=== PATIENT | female | born 1960 | race Caucasian/White ===

== ENCOUNTER 2023-07-29 18:58 | Inpatient (IN) | payer BC, SELFPAY ==
[2023-07-29] VITALS (9 sets, daily range): BP systolic 104–146; BP diastolic 65–91; BMI 19.2; BMI 18.3
[2023-07-29 14:52] LABS: % Basophils 0.2 % (0-2); % Eosinophils 0.1 % (0-6); % Immature Granulocytes 0.7 % (0-0.5); % Lymphocytes 3.3 % (20.5-51.1); % Monocytes 3.6 % (1.7-9.3); % Neutrophils 92.1 % (42.2-75.2); Absolute Immature Granulocytes 0.1 10^3/uL (0-0.05); Absolute Lymphocytes 0.3 10^3/uL (1.2-3.4); Absolute Monocytes 0.3 10^3/uL (0.1-0.6); Hematocrit 28.6 % (37.0-47.0); Hemoglobin 9.8 g/dL (12.0-16.0); Mean Corp Hgb Conc. 34.3 g/dL (33.0-37.0); Mean Corpuscular Hgb 29.9 pg (27.0-31.0); Mean Corpuscular Volume 87.2 fL (81.0-99.0); Mean Platelet Volume 11.5 fL (7.4-10.4); Nucleated Red Blood Cells % 0 %; Platelet Count 332 10^3/uL (130-400); Red Blood Cell Count 3.28 10^6/uL (4.20-5.40); Red Cell Dist. Width 13.5 % (11.5-14.5); White Blood Cell Count 8.7 10^3/uL (4.8-10.8)
[2023-07-29 15:05] LABS: Urine Albumin Trace (Neg - Trace); Urine Bilirubin Negative (Negative); Urine Character Slightly Cloudy (Clear); Urine Color Yellow; Urine Glucose Negative (Negative); Urine Ketone Negative (Negative); Urine Leukocyte 2+ (Negative); Urine Nitrite Positive (Negative); Urine Occult Blood Negative (Negative); Urine Urobilinogen Negative (Neg - 1+)
--- NOTE | 2023-07-29 15:05 | EDRN ---
I noted that pt was clean -- no evidence of poor hygiene. states she had been getting out of bed to use the bathroom as needed, except today when she urinated on the floor in the bedroom and then stared at the wall for hours. He says she has
been in a ' near catatonic state' ..
[2023-07-29] MEDS: NSS 1000 IV (15:08)
[2023-07-29 15:39] LABS: TSH Reflex To Free T4 < 0.02 uIU/ml (0.47-4.68)
[2023-07-29 15:51] LABS: Urine Red Blood Cell 0-2 /HPF (0-2)
[2023-07-29 15:52] LABS: Urine Bacteria Few (Negative)
--- NOTE | 2023-07-29 16:00 | ED.GENMED ---
History of Present Illness
General
Chief Complaint: Change in Mental Status
Source: spouse
Exam Limitations: clinical condition
Time Seen by Provider: 07/29/23 14:09
Nursing documentation reviewed up to this point in time: agreed with
Travel History
Have you had any contact with someone who has COVID-19?: Unable to Answer
Do you have any symptoms of coronavirus? Fever > 100 degrees, chills, cough, shortness of breath, sore throat, loss of taste or smell, muscle aches, or headache?: Unable to Answer
History of Present Illness
History of Present Illness:
pt is a 62 y/o F with h/o HTN, HLD, s/p thyroidectomy secondary to cancer
here with who is primary historian
for change in mental status
pt had some adjustment to her psych meds for bipolar disorder back in may, taken off vralar and on zyprexa
her has noticed that she seems to be having very low energy and some flattened affect to the point where it has affected her living.
5 days ago she had a tele conference with her psychiatrist and he sent her for outpatien tlabs in case there were other causes for this.
her labs showed that she had an JOHN (baseline cr 1.7 up to 2.5) and todl to [place] in.
he says over 3 days she has had sinificantly worsening episodes - that she is 'catatonic' at times, wehr eshe stares at the wall for many hours and is less communicative
she was incontinent of urine this morning and just stood staring at the wall
Past History
Past History
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
ED Past Surgical History: Other (Thyroidectomy)
Social History
Tobacco: Non-smoker
Alcohol: Occasional
Personal:
Living: with family
Family History
Family History: Negative Diabetes, Hypertension, Early CAD, Asthma or Cancer
Review of Systems
Review of Systems
Allergies reviewed?: Yes
All Other Systems: Not applicable
Phy Exam
Physical Exam
Physical Exam:
GENERAL: opens eyes, iminimally communicative, follows some commands, seems to select what she will cooperate with
HEAD: NCAT sunken eyes
EYE: pupils equal and reactive, no nystagmus, no photophobia
NECK: Supple,full rom, nontender
ENT: o/p clr, mmm.
CARDIAC: Regular rate and rhythm . no edema
LUNGS: Clear breath sounds bilaterally, no acute respiratory distress, no wheezes/rales/rhonchi
ABDOMEN: Soft, without focal tenderness, no r/g, no cvat
NEUROLOGICAL:awake, staring off, minimally following commands, can move all extremities but seems globally weak, stuck tongue out oat me but otherwise wasn't following many commands
SKIN: Warm and dry, skin intact.
MUSCULOSKELETAL: No edema, well perfused.
PSYCH: mostly starting, not communicating;
Course
Orders/Labs/Results
Orders:
Orders
07/29/23 14:16
Complete Blood Count/With Diff Urgent
Free T4 Urgent
TSH Reflex To Free T4 Urgent
07/29/23 14:53
Electrocardiogram (*1) Urgent
Reason for Study: Fatigue / Weakness
CT Head W/o Iv Contrast Urgent
Comment:
Reason For Exam: ams
EKG- Treatment ONCE
Urinalysis Reflex To Culture Urgent
Date Specimen was Collected: 07/29/23
Time Specimen was Collected: 14:43
Urine Microscopic Reflex Cult Urgent
Urine Culture Urgent
BIPIN Source: U
Specimen Description:
Date Specimen was Collected: 07/29/23
Time Specimen was Collected: 14:43
0.9% Sodium Chloride 1000 ml [Nss] 1,000 ml IV BOLUS
07/29/23 Dinner
Regular
At Your Request: Limited Participation
Does patient need a safe tray?: No
07/29/23 17:23
Comprehensive Metabolic Panel Routine
07/29/23 17:27
CefTRIAXone [Rocephin] 1,000 mg IV NOW STA
07/29/23 18:27
Admit/Transfer Patient As Directed
Co-Sign Provider:
Level of Care: Inpatient admission
Assign to:: Medical/Surgical
Physician / Group: kenny
Diagnosis: uti, psychiatric
Reason for Hospitalization: uti, psychiatric
Expected length of stay greater than two midnights?: Yes
ELOS- Estimated Length of Stay in days: 2
I certify the patient meets the requirements for IP care: Yes
07/29/23 18:28
Code Status As Directed
Resuscitation Status: Full Code
07/29/23 21:28
Heparin 5,000 units SC Q12
omega 6-jbx-ybz-fish oil [Fish Oil] 1 cap PO BID
07/29/23 21:28
Activity As Directed
Activity Level: As Tolerated
Vital Signs As Directed
Frequency: Per unit guidelines
DX Deep Vein Thrombosis Video Routine
07/29/23 21:49
Acetaminophen [Tylenol] 1,000 mg PO DAILYPRN PRN
07/29/23 22:00
Atorvastatin [Lipitor] 20 mg PO HS
Olanzapine [Zyprexa] 15 mg PO DAILY@1999
Oxcarbazepine [Trileptal] 600 mg PO BID
07/30/23 07:00
Levothyroxine [Synthroid] 137 mcg PO DAILY AT 0700
07/30/23 07:26
Complete Blood Count/With Diff IN AM
Comprehensive Metabolic Panel IN AM
07/30/23 08:00
Cholecalciferol (Vitamin D3) [VITAMIN D3 (cholecalciferol)] 25 mcg PO DAILY
Losartan [Cozaar] 50 mg PO DAILY
Metoprolol Xl [Toprol Xl] 50 mg PO DAILY
07/30/23 18:00
CefTRIAXone [Rocephin] 1,000 mg IV Q24H
Abnormal Lab Results
07/29/23 07/29/23 07/29/23
14:16 14:53 17:23
RBC 3.28 L 10^6/uL
(4.20-5.40)
Hgb 9.8 L g/dL
(12.0-16.0)
Hct 28.6 L %
(37.0-47.0)
MPV 11.5 H fL
(7.4-10.4)
Abs Immat Gran (auto) 0.1 H 10^3/uL
(0-0.05)
Absolute Neuts (auto) 8.0 H 10^3/uL
(1.4-6.5)
Absolute Lymphs (auto) 0.3 L 10^3/uL
(1.2-3.4)
Immature Gran % 0.7 H %
(0-0.5)
Neutrophils % 92.1 H %
(42.2-75.2)
Lymphocytes % 3.3 L %
(20.5-51.1)
Chloride 111 H mmol/L
(98-107)
Carbon Dioxide 20 L mmol/L
(22-30)
BUN 48 H mg/dl
(7-17)
Creatinine 1.8 H mg/dL
(0.6-1.0)
Total Protein 5.6 L g/dl
(6.3-8.2)
Albumin 3.2 L g/dl
(3.5-5.0)
TSH (Reflex) < 0.02 L uIU/ml
(0.47-4.68)
Urine Nitrite (Reflex) Positive A
(Negative)
Leukocyte Esterase Rfl 2+ A
(Negative)
Urine WBC (Reflex) 11-15 A /HPF
(0-5)
Urine Bacteria (Reflex) Few A
(Negative)
07/29/23 14:16
07/29/23 17:23
Vital Signs
Initial and Last Documented VS:
Initial Vital Signs
Temp Pulse Resp BP Pulse Ox
97.8 F 76 16 104/65 97
07/29/23 14:02 07/29/23 14:02 07/29/23 14:02 07/29/23 14:02 07/29/23 14:02
Last Documented Vital Signs
Temp Pulse Resp BP Pulse Ox
98.5 F 75 18 124/81 98
07/31/23 08:51 07/31/23 08:53 07/31/23 08:51 07/31/23 08:53 07/31/23 14:10
MDM/Problems Addressed
Differential Diagnosis Includes:
ams, john, dehdyration, uti, stroke, psychosis, depression
MDM/Problems Addressed:
62 y/o F with h/o mental illness
here with dec mental status, staring into space, not really eat/drinking normally
has been ongoign since change to spych meds but worse in the past 3 days specfiically
urinated on herself today while standing up getting to the bathroom then stood for 3 horus staring at the wall
minimally followin gcommands; seems to be selective
appears mildly dry
pale
pt has been losing weight
heart/lungs clear, abd nontender
unable to really assess neuro exam but does move all extremities
left face looked a little asysmetric/droop but she can elevate her mouth
has had uti bacteremia before
her urine is nitrite pos, LE, wbc 11, few bacteria;
likely contributory to her AMS
feel that pt should probably warrant a psych consult
anticipate admission.
*Critical Care Note
Total Time (30-74mins, 75-104mins- exclusive of procedures): Not Applicable
ED Attending Note
-
Portions of this chart may have been created with voice recognition software.� Occasional wrong word or��sound alike� substitutions may have occurred due to the inherent limitations of voice recognition software.
Discharge Plan
Departure
Patient Disposition: Admit
Date of Disposition: 07/29/23
Time of Disposition: 17:27
Admit to: Med/Surg
Presentation/result/management discussed w/ accepting MD/DO: Hospitalist
Patient with high blood pressure during this ER visit?: No
Condition: Fair
Covid-19: Not Applicable
Discharge Problem:
UTI (urinary tract infection), Altered mental status, Dehydration
Interventions
Interventions:
*Risk Screen - Suicide Last Done: 07/29/23 23:15
*General Assessment Last Done: 07/29/23 14:00
*Neglect/Abuse Screening Last Done: 07/29/23 15:00
ED- Fall Risk Assessment Last Done: 07/29/23 14:03
*ED COVID-19 Vaccine History Last Done: 07/29/23 14:03
*Nursing Disposition Last Done: 07/29/23 21:32
ED- Pulmonary Assessment Last Done: 07/29/23 14:18
ED-Psychological Assessment Last Done: 07/29/23 15:03
ED- Neurological Assessment Last Done: 07/29/23 14:04
ED- Cardiac Assessment Last Done: 07/29/23 14:15
ED Swallowing Screen Last Done: 07/29/23 17:36
Discharge Date and Time
Discharge Date/Time: 07/29/23 21:32
[2023-07-29 16:07] LABS: Free T4 1.21 ng/dl (0.78-2.19)
[2023-07-29] MEDS: ROCEPHIN 1000 MG IV (17:32)
[2023-07-29 17:52] LABS: ALT (SGPT) 20 U/L (0-35); AST (SGOT) 19 U/L (14-36); Albumin 3.2 g/dl (3.5-5.0); Alkaline Phosphatase 96 U/L (38-126); Blood Urea Nitrogen 48 mg/dl (7-17); Calcium 8.6 mg/dl (8.4-10.2); Carbon Dioxide 20 mmol/L (22-30); Chloride 111 mmol/L (98-107); Estimated Creatinine Clearance 27 ml/min; Glucose 93 mg/dl (70-99); Potassium 4.1 mmol/L (3.5-5.1); Sodium 137 mmol/L (135-145); Total Bilirubin 0.4 mg/dl (0.2-1.3); Total Protein 5.6 g/dl (6.3-8.2); eGFR 31.27
--- NOTE | 2023-07-29 18:31 | HPS.HSE ---
Family Physician
-
Family Physician: Ladi Mcgrath DO
Chief Complaint
-
altered mental status
History of Present Illness
62-year-old female past medical history of bipolar disorder, hypertension, hyperlipidemia, thyroid cancer status post thyroidectomy, chronic kidney disease presenting for change in mental status. Patient was hospitalized at [facility] after
Thanks for charles and at that time was taken off of Vraylar and started on Zyprexa in early May. Zyprexa has been successful in calming the charles but patient has been showing less emotion, having flattened affect particularly over the
past week. She has been eating significantly less.
5 days ago she had a teleconference with her psychiatrist and he checked outpatient labs to evaluate for medical causes. Labs show that she had increase of creatinine up to 2.5 and was told to bring patient in to the hospital. Over the
past 3 days she has been catatonic at times staring at the wall for many hours and is less communicative was incontinent of urine this morning while staring at the wall. She was complaining of some lower abdominal pain. No nausea or vomiting. No
diarrhea or constipation. No fevers or chills.
No suicidal ideation.
No history of absent seizures.
No alcohol or any drugs.
Medical History
Past Medical History
Past Medical History: Reports Other ( bipolar disorder, hypertension, hyperlipidemia, thyroid cancer status post thyroidectomy, chronic kidney disease)
Past Surgical History: Reports None
Social History
Tobacco: Non-smoker
Alcohol: None
Drug: None
Family History
Family History: Not pertinent
Allergies / Home Medications
Allergies reflects when Allergies were last updated in [facility].
Home Medications with original date entered in [facility]
Allergy/Medication List:
Allergies
Allergy/AdvReac Type Severity Reaction Status Date / Time
Penicillins Allergy Hives Verified 05/16/23 15:36
Home Medications
cholecalciferol (vitamin D3) 25 mcg (1,000 unit) capsule (Vitamin D3) 25 mcg PO DAILY 05/16/23
losartan 50 mg tablet 50 mg PO DAILY 05/16/23
acetaminophen 650 mg tablet,extended release 1,300 mg PO DAILYPRN PRN mild pain 07/29/23
levothyroxine 137 mcg tablet 137 mcg PO DAILY 07/29/23
metoprolol succinate 50 mg tablet,extended release 24 hr 50 mg PO DAILY 07/29/23
olanzapine 15 mg tablet 15 mg PO DAILY@199907/29/23
omega 0-rdb-rwp-fish oil 1,000 mg (120 mg-180 mg) capsule (Fish Oil) 1 cap PO BID 07/29/23
oxcarbazepine 300 mg tablet 600 mg PO BID 07/29/23
simvastatin 40 mg tablet 40 mg PO HS 07/29/23
Review of Systems
-
History Source: Patient
A 12 point ROS was completed and negative except as noted: Yes
Constitutional: Reports No Symptoms
EENT: Reports No Symptoms
Respiratory: Reports No Symptoms
Cardiac: Reports No Symptoms
Abdomen/GI: Reports No Symptoms
: Reports See HPI
Musculoskeletal: Reports No Symptoms
Skin: Reports No Symptoms
Neurological: Reports No Symptoms
Endocrine: Reports No Symptoms
Hematologic/Lymphatic: Reports No Symptoms
Psych: Reports See HPI
Physical Exam
Vital Signs
Vital Signs
Temp Pulse Resp BP Pulse Ox
97.8 F 72 17 118/77 97
07/29/23 14:02 07/29/23 17:00 07/29/23 17:00 07/29/23 17:00 07/29/23 14:02
Physical Exam
General: Well Developed, Well Nourished and No Apparent Distress
HEENT: NormoCephalic, Moist mucous membranes and Atraumatic
Respiratory: Clear
Cardiac: S1/S2 and Regular Rhythm; No Murmur or Rub
GI: Soft, Non Tender, Non Distended and Normal Bowel Sounds; No Organomegaly
Rectal: Deferred by Provider
Musculoskeletal: No Clubbing, No Cyanosis and No Edema
Skin: No Rash
Neuro: Nonfocal/grossly intact
Laboratory Results
-
07/29/23 14:16
07/29/23 17:23
Laboratory Results
Total Bilirubin 0.4 mg/dl (0.2-1.3) 07/29/23 17:23
AST 19 U/L (14-36) 07/29/23 17:23
ALT 20 U/L (0-35) 07/29/23 17:23
Alkaline Phosphatase 96 U/L (38-126) 07/29/23 17:23
Data Reviewed
-
Lab Data: Labs Reviewed by me
Old Records: Reviewed
Impression/Plan
-
IMPRESSION:
PLAN:
# Altered mental status multifactorial secondary to UTI, psychiatric medication changes
-See individually below
# Urinary tract infection
-UA shows +2 leukocyte esterase, positive nitrates, 11-15 WBC
-Check urine culture
-Ceftriaxone
#Catatonic/staring episodes
# History of bipolar disorder
-Likely related to change in psychiatric medications if no improvement with treatment of UTI
-Absence seizures unlikely
-Continue olanzapine, oxcarbazepine
-Psychiatry consulted
# Chronic kidney disease
-Renal function at 1.8 which is at her baseline
Thyroid cancer status post thyroidectomy
-Continue levothyroxine
Essential hypertension
-Continue losartan, metoprolol
Hyperlipidemia
-Continue statin
Full code
DVT prophylaxis- heparin
Regular diet
[2023-07-29] MEDS: LIPITOR 20 MG PO (22:53)
[2023-07-29] MEDS: TRILEPTAL 600 MG PO (22:53)
[2023-07-29] MEDS: ZYPREXA 15 MG PO (22:53)
[2023-07-29] MEDS: HEPARIN SC ×2 (22:54→22:58)
[2023-07-30] MEDS: SYNTHROID 137 MCG PO (06:11)
[2023-07-30 08:02] LABS: % Basophils 0.3 % (0-2); % Eosinophils 1.2 % (0-6); % Immature Granulocytes 0.4 % (0-0.5); % Lymphocytes 7.7 % (20.5-51.1); % Monocytes 5.5 % (1.7-9.3); % Neutrophils 84.9 % (42.2-75.2); Absolute Eosinophils 0.1 10^3/uL (0-0.7); Absolute Lymphocytes 0.5 10^3/uL (1.2-3.4); Absolute Monocytes 0.4 10^3/uL (0.1-0.6); Absolute Neutrophils 5.7 10^3/uL (1.4-6.5); Hematocrit 27.2 % (37.0-47.0); Hemoglobin 9.2 g/dL (12.0-16.0); Mean Corp Hgb Conc. 33.8 g/dL (33.0-37.0); Mean Corpuscular Hgb 30.1 pg (27.0-31.0); Mean Corpuscular Volume 88.9 fL (81.0-99.0); Mean Platelet Volume 10.6 fL (7.4-10.4); Nucleated Red Blood Cells % 0 %; Platelet Count 333 10^3/uL (130-400); Red Blood Cell Count 3.06 10^6/uL (4.20-5.40); Red Cell Dist. Width 13.3 % (11.5-14.5); White Blood Cell Count 6.8 10^3/uL (4.8-10.8)
[2023-07-30 08:34] VITALS: BP 112/73
[2023-07-30] MEDS: COZAAR 50 MG PO (08:52)
[2023-07-30] MEDS: TRILEPTAL 600 MG PO (08:52)
[2023-07-30] MEDS: TOPROL XL 50 MG PO (08:53)
[2023-07-30] MEDS: HEPARIN SC ×2 (08:53→21:38)
[2023-07-30] MEDS: VITAMIN D3 (cholecalciferol) 25 MCG PO (08:53)
[2023-07-30 09:01] LABS: ALT (SGPT) 18 U/L (0-35); AST (SGOT) 16 U/L (14-36); Albumin 2.8 g/dl (3.5-5.0); Alkaline Phosphatase 85 U/L (38-126); Blood Urea Nitrogen 45 mg/dl (7-17); Carbon Dioxide 18 mmol/L (22-30); Chloride 112 mmol/L (98-107); Estimated Creatinine Clearance 24 ml/min; Glucose 79 mg/dl (70-99); Potassium 4.2 mmol/L (3.5-5.1); Sodium 142 mmol/L (135-145); Total Bilirubin 0.4 mg/dl (0.2-1.3); Total Protein 5.2 g/dl (6.3-8.2); eGFR 27.55
--- NOTE | 2023-07-30 12:39 | W.PN.HOSP.TC ---
Today's Communication/Plan
-
see A/P
Assessment / Plan
Assessment / Plan
62-year-old female past medical history of bipolar disorder, hypertension, hyperlipidemia, thyroid cancer status post thyroidectomy, chronic kidney disease presented for change in mental status.�Patient was hospitalized at [facility] after
Thanksgiving for charles and at that time was taken off of Vraylar and started on Zyprexa in early May.� Zyprexa has been successful in calming the charles but patient has been showing less emotion, having flattened affect particularly over the
past week.� She has been eating significantly less.
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
past 3 days she has been catatonic at times, staring at the wall for many hours and is less communicative.
She was incontinent of urine while staring at the wall.� She was complaining of some lower abdominal pain.�
No suicidal ideation. No history of absent seizures. No alcohol or any drugs.
A/P:
# Altered mental status multifactorial secondary to UTI, psychiatric medication changes
See individually below
# Urinary tract infection with E coli
Follow full urine Cx result
Cont Ceftriaxone
# Catatonic/staring episodes
# History of bipolar disorder
Likely related to change in psychiatric medications if no improvement with treatment of UTI
Absence seizures unlikely
Continue olanzapine, oxcarbazepine
Psychiatry consulted
# Chronic kidney disease stage 4
Renal function at 1.8 which is at her baseline
# Thyroid cancer status post thyroidectomy
Continue levothyroxine
# Essential hypertension
Continue losartan, metoprolol
# Hyperlipidemia
Continue statin
Full code
DVT prophylaxis- heparin
Regular diet
Anticipated Discharge: 24 - 48 hours
Subjective/Interval History
-
Date of Service: July 30, 2023
Objective Data
-
Labs:
Laboratory Results
07/30/23
07:26
WBC 6.8
Hgb 9.2 L
Hct 27.2 L
Plt Count 333
Sodium 142
Potassium 4.2
Chloride 112 H
Carbon Dioxide 18 L
BUN 45 H
Creatinine 2.0 H
Glucose 79
Calcium 9.0
Total Bilirubin 0.4
AST 16
ALT 18
Alkaline Phosphatase 85
Vital Signs:
Vital Signs
Temp Pulse Resp BP Pulse Ox
36.8 C 78 18 112/73 96
07/30/23 08:34 07/30/23 08:52 07/30/23 08:34 07/30/23 08:52 07/30/23 08:34
I&O
07/29/23 07/30/23 07/31/23
06:59 06:59 06:59
Intake Total 240 / 240
Output Total 500 / 500
Balance -260 / -260
Review of Systems
-
All other systems: Reviewed and negative
Physical Exam
-
General: Well Developed, Well Nourished, No Apparent Distress and Comfortable; Negative Respiratory Distress
HEENT: Normocephalic, Atraumatic, Nose Appears Normal and Ears Appear Normal; Negative Oxygen
Respiratory: Clear to Auscultation and Non Labored Respirations; Negative Accessory Resp Muscle Use
Cardiac: Regular Rhythm and S1/S2
GI: Soft, Nontender, Nondistended and Normal Bowel Sounds
Skin: Warm and Dry
Neuro: Awake and Alert
Psych: Calm and Other (flat affect)
Data Reviewed
-
Labs: Labs Reviewed by me
--- NOTE | 2023-07-30 13:13 | CON.MD ---
Consultation - Medical
-
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 she was last seen in april when she was 302 committed as she had become psychotic. please see my detailed note from that time. she had been on a number of medications
over the years for control of bipolar d/o . lithium caused renal issues and was stopped (she sees dr johnston) and depakote bc tcp. she was able to tell me these facts. she wound up in psych hosp in the fall and they dc'ed vraylar and put her on
zyprexa and trileptal which is ordered. she is here at this point as noted change in mental status and she was brought to er. she was found to have uti which is currently being rx. patient is described as almost 'catatonic' in the chart
but i did not find her so nor did nursing. she was appropriately interactive if not a bit subdued when her nurse and i initially talked to her. she had already ordered her lunch. she was oriented fully and knew the president, the holidays which just
passed. she did say she felt very tired and appeared thus. she is not sleeping well. appetite is so so. i could not elicit any overt psychosis. she denied suicidality. she enjoys her black lab and taking walks w him
past [facility] again see my prior psych eval sees dr stover for psych meds. most recent hosp in the fall of 2022
medical htn ckd see above thyroid ca w removal an subsequent hypothryoid hld qtc 483 abn ecg diverticulitis anemia 9.2 cr 2 bun 45 cat brain no acute changes
fh sh see prior evaluation
substance abuse denied
mse tired frail appearing woman who appears older than age. coopertive fully oriented knows president and recent holidays. speech soft and slowed thought process goal oriented no psychosis affect is constricted mood tired no si aver intelligence
insight judgment fair
dx bipolar unspecified
plan would cut back the zyprexa for now to 10 mg as she really appears sedated. it could be the uti but could also be med effect. trileptal is at what is usually max dose would cut it back somewhat and monitor. psych will follow.
[2023-07-30 16:28] VITALS: BP 99/59
--- NOTE | 2023-07-30 17:29 | CM ---
CM following re: d/c planning
Chart reviewed
CM met with the patient at bedside; IA completed
Pt reports she and her spouse reside in a [place] with 2 or 3 PRASHANTH
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
Pt has a significant psych hx and had been 302'd in Apr per psych documentation
Pt chong no previous SNF/VN hx and the only DME owned is a spc
Pt has prescription coverage and rx's are filled at [facility] on [address]
Pt PCP-Deanna Campos
Pt has skilled PT/OT needs and psych will continue to follow while hospitalized and adjust medications accordingly
No additional d/c needs noted; CM will follow up with patient to see if she receives any outpatient tx for psych hx
PLAN; d/c home no needs anticipated
[2023-07-30 17:54] VITALS: BMI 18.3
[2023-07-30] MEDS: STERILE WATER FOR INJECTION IV (18:06)
[2023-07-30] MEDS: ROCEPHIN IV (18:06)
[2023-07-30] MEDS: LIPITOR PO ×2 (21:40→21:58)
[2023-07-30 21:45] VITALS: BP 119/74
[2023-07-31] MEDS: SYNTHROID PO (06:25)
[2023-07-31 07:00] VITALS: BP 136/85
[2023-07-31 08:51] VITALS: BP 124/81
[2023-07-31] MEDS: TOPROL XL 50 MG PO (08:53)
[2023-07-31] MEDS: VITAMIN D3 (cholecalciferol) 25 MCG PO (08:55)
[2023-07-31] MEDS: COZAAR 50 MG PO (08:55)
[2023-07-31] MEDS: TRILEPTAL 300 MG PO (08:55)
[2023-07-31] MEDS: SYNTHROID 137 MCG PO (08:55)
[2023-07-31] MEDS: HEPARIN SC ×2 (08:58→22:07)
--- NOTE | 2023-07-31 09:44 | W.PN.HOSP.TC ---
Addendum entered and electronically signed by Mariaa Tucker MD 07/31/23 14:56:
# Toxic metabolic encephalopathy, multifactorial secondary to UTI and psychiatric medication changes
Original Note:
Today's Communication/Plan
-
see A/P
Assessment / Plan
Assessment / Plan
62-year-old female past medical history of bipolar disorder, hypertension, hyperlipidemia, thyroid cancer status post thyroidectomy, chronic kidney disease presented for change in mental status.�Patient was hospitalized at [facility] after
Thanksgiving for charles and at that time was taken off of Vraylar and started on Zyprexa in early May.� Zyprexa has been successful in calming the charles but patient has been showing less emotion, having flattened affect particularly over the
past week.� She has been eating significantly less.
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
past 3 days she has been catatonic at times, staring at the wall for many hours and is less communicative.
She was incontinent of urine while staring at the wall.� She was complaining of some lower abdominal pain.�
No suicidal ideation. No history of absent seizures. No alcohol or any drugs.
A/P:
# Altered mental status multifactorial secondary to UTI, psychiatric medication changes
See individually below
# Urinary tract infection with E coli
Cont Ceftriaxone
# Catatonic/staring episodes
# History of bipolar disorder
Likely related to change in psychiatric medications
Absence seizures unlikely
Continue olanzapine, oxcarbazepine
Psychiatry on board, cut back zyprexa and cut back trileptal
# Chronic kidney disease stage 4
Renal function at 1.8 which is at her baseline
# Thyroid cancer status post thyroidectomy
Continue levothyroxine
# Essential hypertension
Continue losartan, metoprolol
# Hyperlipidemia
Continue statin
Full code
DVT prophylaxis- heparin
Regular diet
Anticipated Discharge: 24 - 48 hours
Subjective/Interval History
-
Date of Service: July 31, 2023
Objective Data
-
Vital Signs:
Vital Signs
Temp Pulse Resp BP Pulse Ox
36.9 C 75 18 124/81 98
07/31/23 08:51 07/31/23 08:53 07/31/23 08:51 07/31/23 08:53 07/31/23 08:51
I&O
07/30/23 07/31/23 08/01/23
06:59 06:59 06:59
Intake Total 240 / 240 480 / 480
Output Total 500 / 500
Balance -260 / -260 480 / 480
Review of Systems
-
All other systems: Reviewed and negative
Physical Exam
-
General: Well Developed, Well Nourished, No Apparent Distress and Comfortable; Negative Respiratory Distress
HEENT: Normocephalic, Atraumatic, Nose Appears Normal and Ears Appear Normal; Negative Oxygen
Respiratory: Clear to Auscultation and Non Labored Respirations; Negative Accessory Resp Muscle Use
Cardiac: Regular Rhythm and S1/S2
GI: Soft, Nontender, Nondistended and Normal Bowel Sounds
Skin: Warm and Dry
Neuro: Awake and Alert
Psych: Calm and Other (flat affect)
Data Reviewed
-
Labs: Labs Reviewed by me
--- NOTE | 2023-07-31 14:45 | PN.CDI ---
CDI
- -
CDI:
Physician Documentation Request
Admit Date: 07/29/23 18:58
Dear Doctor Garrett,
Please review the following and provide your response in the progress notes.
Clinical Indicators:
PN, 2
# Altered mental status multifactorial secondary to UTI, psychiatric medication changes
# Urinary tract infection with E coli
# Catatonic/staring episodes
# History of bipolar disorder
#...Likely related to change in psychiatric medications
#...Absence seizures unlikely
#...Continue olanzapine, oxcarbazepine
#Psychiatry on board, cut back zyprexa and cut back trileptal
Based on the above, and your clinical assessment, please clarify in the Progress Notes and Discharge Summary the most likely etiology of the confusion/altered mental status.
Toxic metabolic encephalopathy, multifactorial secondary to UTI and psychiatric medication changes
Altered mental status only
Other
Use of terms such as suspected, likely, concern for, or probable (associated with a specific diagnosis that is being evaluated, monitored, or treated as if it exists) are acceptable and can be coded in the inpatient setting, when documented at the
time of discharge.
Thank you,
Crista Christie RN BSN CCDS
CDI Specialist
please contact via tiger text
Please use your independent medical judgment in providing your response.
[2023-07-31 15:00] VITALS: BP 121/71
--- NOTE | 2023-07-31 15:16 | W.PN.UPDATE ---
Update Note
Progress Note Update
patient seen chart reviewed. at bedside. spoke with nursing. patient seemed more alert today. she is still rather withdrawn. we discussed the changes i had made in meds. states that there had been plans to decrease her zyprexa in
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 also does not feel trileptal has been at all helpful for mrs taylor and is okay w decrease. patient has been reluctant to take antibiotic for uti. and i discussed w her. encouraged her to
take it and if there are ill effects to let us know so this can be addressed. will follow
[2023-07-31] MEDS: ROCEPHIN 1000 MG IV (17:22)
[2023-07-31] MEDS: STERILE WATER FOR INJECTION 10 ML IV (17:22)
[2023-07-31] MEDS: LIPITOR PO (22:08)
[2023-07-31 23:37] VITALS: BP 136/86
[2023-08-01 07:57] LABS: Hematocrit 29.5 % (37.0-47.0); Hemoglobin 9.7 g/dL (12.0-16.0); Mean Corp Hgb Conc. 32.9 g/dL (33.0-37.0); Mean Corpuscular Hgb 29.5 pg (27.0-31.0); Mean Corpuscular Volume 89.7 fL (81.0-99.0); Mean Platelet Volume 10.4 fL (7.4-10.4); Platelet Count 389 10^3/uL (130-400); Red Blood Cell Count 3.29 10^6/uL (4.20-5.40); Red Cell Dist. Width 13.6 % (11.5-14.5); White Blood Cell Count 7.9 10^3/uL (4.8-10.8)
[2023-08-01 08:13] VITALS: BP 133/81
[2023-08-01 08:17] LABS: Blood Urea Nitrogen 45 mg/dl (7-17); Calcium 9.4 mg/dl (8.4-10.2); Carbon Dioxide 19 mmol/L (22-30); Chloride 113 mmol/L (98-107); Estimated Creatinine Clearance 23 ml/min; Glucose 109 mg/dl (70-99); Potassium 4.1 mmol/L (3.5-5.1); Sodium 147 mmol/L (135-145); eGFR 25.99
[2023-08-01] MEDS: HEPARIN SC ×2 (08:55→21:27)
[2023-08-01] MEDS: TOPROL XL 50 MG PO (09:04)
[2023-08-01] MEDS: VITAMIN D3 (cholecalciferol) 25 MCG PO (09:05)
[2023-08-01] MEDS: COZAAR 50 MG PO (09:05)
[2023-08-01] MEDS: SYNTHROID 137 MCG PO (09:06)
[2023-08-01] MEDS: TRILEPTAL 300 MG PO (09:06)
--- NOTE | 2023-08-01 09:28 | W.PN.HOSP.TC ---
Addendum entered and electronically signed by Venancio Michaels MD 08/01/23 15:05:
Correction, hypernatremia
Original Note:
Today's Communication/Plan
-
see bold
Assessment / Plan
Assessment / Plan
62-year-old female past medical history of bipolar disorder, hypertension, hyperlipidemia, thyroid cancer status post thyroidectomy, chronic kidney disease presented for change in mental status.�Patient was hospitalized at [facility] after
Thanksgi for charles and at that time was taken off of Vraylar and started on Zyprexa in early May.� Zyprexa has been successful in calming the charles but patient has been showing less emotion, having flattened affect particularly over the
past week.� She has been eating significantly less.
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
past 3 days she has been catatonic at times, staring at the wall for many hours and is less communicative.
She was incontinent of urine while staring at the wall.� She was complaining of some lower abdominal pain.�
No suicidal ideation. No history of absent seizures. No alcohol or any drugs.
Gen: NAD, Awake and alert
Eyes: EOMI, PERRLA, no scleral icterus.
Neck: supple.
CV: RRR, +S1/S2, no m/r/g.
Resp: CTAB, no rales, wheezes, or rhonchi.
Abd: +BS, soft, NT, ND
Skin: No rashes.
Neuro: CN 2-12 intact, non-focal.
Psych: flat affect.
07/29/23 14:53 Urine Urine Culture - Final
Escherichia coli
Acute toxic metabolic encephalopathy:
-Multifactorial and secondary to UTI and well as psychiatric medication changes
-see below
Urinary tract infection:
-UCx with E coli
-cont Rocephin
Bipolar d/o:
-with h/o catatonic/staring episodes
-likely related to change in psychiatric medications
-Absence seizures unlikely
-psych following
-olanzapine and oxcarbazepine doses decreased
Hyponatremia and metabolic, anion gap, acidosis:
-start D5W
-trend Na, HCO3-
Other problems:
CKD4
Thyroid cancer s/p thyroidectomy: continue levothyroxine
Essential hypertension: cont ARB/BB
Hyperlipidemia: cont statin
FULL/heparin
Anticipated Discharge: 24 - 48 hours
Subjective/Interval History
-
Date of Service: August 01, 2023
No new complaints. Denies CP/SOB.
Objective Data
-
Labs:
Laboratory Results
08/01/23
07:22
WBC 7.9
Hgb 9.7 L
Hct 29.5 L
Plt Count 389
Sodium 147 H
Potassium 4.1
Chloride 113 H
Carbon Dioxide 19 L
BUN 45 H
Creatinine 2.1 H
Glucose 109 H
Calcium 9.4
Vital Signs:
Vital Signs
Temp Pulse Resp BP Pulse Ox
97.4 F 84 18 133/81 97
08/01/23 08:13 08/01/23 09:04 08/01/23 08:13 08/01/23 09:04 08/01/23 08:13
I&O
07/31/23 08/01/23 08/02/23
06:59 06:59 06:59
Intake Total 480 / 480
Balance 480 / 480
[2023-08-01] MEDS: D5W 1000 IV ×2 (11:01→21:19)
--- NOTE | 2023-08-01 13:43 | W.PN.UPDATE ---
Update Note
Progress Note Update
patient seen chart reviewed. at bedside . spoke to nursing. patient apparently did not take meds last night. today she has compliant. she appeared brighter today. she was eating better. much more responsive to talking w this machine sign writer and
. overall she still has rather constricted affect but feels she is improving each day. would continue w current meds as they are for now will follow
--- NOTE | 2023-08-01 16:09 | CM ---
Cm following re: d/c planning
Chart reviewed
Pt discharge anticipated within the next 24-48 hours
Pt seen by psych and she's adjusted some of the patient's medications
No skilled needs noted; however patient will continue to be seen at [facility] for continued treatment
CM will continue to monitor patient progress and assist with any d/c planning as applicable
PLAN; d/c home no needs anticipated
[2023-08-01 16:12] VITALS: BP 110/69
[2023-08-01] MEDS: ROCEPHIN 1000 MG IV (17:53)
[2023-08-01] MEDS: STERILE WATER FOR INJECTION 10 ML IV (17:54)
[2023-08-01] MEDS: STERILE WATER FOR INJECTION 2.10000000000000009 ML IM (20:18)
[2023-08-01] MEDS: ZYPREXA 5 MG IM (20:23)
[2023-08-01] MEDS: LIPITOR PO (22:11)
[2023-08-01 22:33] VITALS: BP 128/76
--- NOTE | 2023-08-01 22:56 | TRANSFER ---
Pt received from , sitting up in bed repeatedly stating the same phrases over and over. Patient will not answer any questions, just keeps repeating 'this room isn't real'. Medsitter in place.
[2023-08-02] MEDS: SYNTHROID PO (06:11)
[2023-08-02] MEDS: D5W 1000 IV ×2 (06:12→16:15)
[2023-08-02 07:20] VITALS: BP 121/90
[2023-08-02] MEDS: VITAMIN D3 (cholecalciferol) PO ×2 (08:36→08:43)
[2023-08-02] MEDS: COZAAR PO ×2 (08:36→08:43)
[2023-08-02] MEDS: TRILEPTAL PO ×2 (08:36→08:43)
[2023-08-02] MEDS: HEPARIN SC ×3 (08:36→20:57)
[2023-08-02] MEDS: TOPROL XL PO ×2 (08:36→08:43)
--- NOTE | 2023-08-02 09:26 | PTCARENOTE ---
Addendum entered by Winston Ch RN 08/02/23 13:25:
Pt's at bedside, pt agreeable to taking morning medications with him present. Administration documented per MAR.
Original Note:
Pt refusing all morning medications. This RN with several attempts to educate patient on the use and importance of each medication, but patient detached and not participating in teaching. made aware.
[2023-08-02 09:35] LABS: Blood Urea Nitrogen 36 mg/dl (7-17); Calcium 8.2 mg/dl (8.4-10.2); Carbon Dioxide 23 mmol/L (22-30); Chloride 107 mmol/L (98-107); Estimated Creatinine Clearance 28 ml/min; Glucose 125 mg/dl (70-99); Potassium 3.9 mmol/L (3.5-5.1); Sodium 136 mmol/L (135-145); eGFR 33.49
[2023-08-02] MEDS: TRILEPTAL 300 MG PO (12:46)
[2023-08-02] MEDS: COZAAR 50 MG PO (12:46)
[2023-08-02] MEDS: TOPROL XL 50 MG PO (12:46)
[2023-08-02] MEDS: VITAMIN D3 (cholecalciferol) 25 MCG PO (12:47)
--- NOTE | 2023-08-02 13:47 | W.PN.HOSP.TC ---
Today's Communication/Plan
-
Doing well
Med timing changed by Psych
Assessment / Plan
Assessment / Plan
62-year-old female past medical history of bipolar disorder, hypertension, hyperlipidemia, thyroid cancer status post thyroidectomy, chronic kidney disease presented for change in mental status.�Patient was hospitalized at [facility] after
Thanksgiving for charles and at that time was taken off of Vraylar and started on Zyprexa in early May.� Zyprexa has been successful in calming the charles but patient has been showing less emotion, having flattened affect particularly over the
past week.� She has been eating significantly less.
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
past 3 days she has been catatonic at times, staring at the wall for many hours and is less communicative.
She was incontinent of urine while staring at the wall.� She was complaining of some lower abdominal pain.�
No suicidal ideation. No history of absent seizures. No alcohol or any drugs.
Initial exam:
Gen: NAD, Awake and alert
Eyes: EOMI, PERRLA, no scleral icterus.
Neck: supple.
CV: RRR, +S1/S2, no m/r/g.
Resp: CTAB, no rales, wheezes, or rhonchi.
Abd: +BS, soft, NT, ND
Skin: No rashes.
Neuro: CN 2-12 intact, non-focal.
Psych: flat affect.
07/29/23 14:53 Urine Urine Culture - Final
Escherichia coli
1. Acute toxic metabolic encephalopathy:
-Multifactorial and secondary to UTI and well as psychiatric medication changes
-see below
2. Urinary tract infection:
-UCx with E coli
-cont Rocephin
3. Bipolar d/o:
-with h/o catatonic/staring episodes
-likely related to change in psychiatric medications
-Absence seizures unlikely
-psych following
-Psych changing timing of meds
-olanzapine and oxcarbazepine doses decreased
4. Hyponatremia and metabolic, anion gap, acidosis:
-started D5W
-trend Na & HCO3- daily
5. CKD-stage4, BUN/Creat at baseline 45/2.1, now 36/1.7
Improving
-Continue current care
-Follow daily
Other problems:
CKD4
Thyroid cancer s/p thyroidectomy: continue levothyroxine
Essential hypertension: cont ARB/BB
Hyperlipidemia: cont statin
Code FULL
heparin for DVTp
Anticipated Discharge: > 48 hours
Subjective/Interval History
-
Date of Service: August 02, 2023
No new complaints
Objective Data
-
Labs:
Laboratory Results
08/02/23
07:26
Sodium 136 D
Potassium 3.9
Chloride 107
Carbon Dioxide 23
BUN 36 H
Creatinine 1.7 H
Glucose 125 H
Calcium 8.2 L
Vital Signs:
Vital Signs
Temp Pulse Resp BP Pulse Ox
97.4 F 55 16 121/90 98
08/02/23 07:20 08/02/23 07:20 08/02/23 07:20 08/02/23 07:20 08/02/23 08:00
I&O
08/01/23 08/02/23 08/03/23
06:59 06:59 06:59
Intake Total 1759
Balance 1759
Review of Systems
-
History Source: Patient
All other systems: Reviewed and negative
Physical Exam
-
General: Well Developed, Well Nourished and No Apparent Distress
HEENT: Normocephalic, Atraumatic, Eckley Conjunctivae, Nose Appears Normal and Ears Appear Normal
Respiratory: Clear to Auscultation
Cardiac: Regular Rhythm and S1/S2
GI: Soft, Nontender and Nondistended
Musculoskeletal: No Clubbing, No Cyanosis and No Edema
Skin: Warm and Dry; Negative Rash or Ulcers
Neuro: Awake and Alert
Psych: Calm and Other (Flat affect)
Data Reviewed
-
Labs: Labs Reviewed by me
--- NOTE | 2023-08-02 13:48 | W.PN.UPDATE ---
Update Note
Progress Note Update
patient seen chart reviewed. discussed w nursing. h at bedside. mrs de la cruz has been refusing her meds. has had success at giving them to her. she has been told repeately that not taking psych meds will very likely cause her to become
manic and hospitalization for psych will follow. she said she understands this and will take them however suggested and i think it is a good idea moving psych meds to when he is here will change zyprexa time to 1400 as he usually visits in
the afternoon. she just took am trileptal so will not change this at this time.
[2023-08-02] MEDS: ZYPREXA 10 MG PO (14:09)
[2023-08-02 15:15] VITALS: BP 125/72
[2023-08-02] MEDS: STERILE WATER FOR INJECTION 10 ML IV (17:40)
[2023-08-02] MEDS: ROCEPHIN 1000 MG IV (17:40)
[2023-08-02] MEDS: LIPITOR 20 MG PO (20:58)
[2023-08-02 23:01] VITALS: BP 131/92
[2023-08-03] MEDS: D5W 1000 IV (03:02)
[2023-08-03] MEDS: SYNTHROID PO (05:30)
[2023-08-03] MEDS: STERILE WATER FOR INJECTION 2.10000000000000009 ML IM (06:36)
[2023-08-03] MEDS: ZYPREXA 5 MG IM (06:37)
--- NOTE | 2023-08-03 07:00 | PTCARENOTE ---
At 0615 pt becomes very restless and agitated. Pt tries to get out of bed and leave the room frequently, but is too unsteady to be left to move independently. Pt was assisted to sit in a ángel chair w/o a table, but pt remains agitated and restless.
Pt was assisted back to bed, but is refusing to lay down, trying to get up continuously and leave the room. Pt is not redirectable. CULLEN Khan notified. 4 point restraints ordered and applied. Zyprexa 5mg I.M. ordered and administered. Pt is
fighting to get out of restraints but relaxes occasionally. Report given to maxx Montero.
[2023-08-03 08:13] LABS: Hemoglobin 10.4 g/dL (12.0-16.0); Mean Corp Hgb Conc. 34.7 g/dL (33.0-37.0); Mean Corpuscular Hgb 29.6 pg (27.0-31.0); Mean Corpuscular Volume 85.5 fL (81.0-99.0); Mean Platelet Volume 10.1 fL (7.4-10.4); Platelet Count 379 10^3/uL (130-400); Red Blood Cell Count 3.51 10^6/uL (4.20-5.40)
[2023-08-03 08:30] LABS: Blood Urea Nitrogen 31 mg/dl (7-17); Calcium 8.9 mg/dl (8.4-10.2); Carbon Dioxide 20 mmol/L (22-30); Chloride 107 mmol/L (98-107); Estimated Creatinine Clearance 27 ml/min; Glucose 123 mg/dl (70-99); Sodium 135 mmol/L (135-145); eGFR 31.27
[2023-08-03 09:00] VITALS: BP 142/94
--- NOTE | 2023-08-03 09:22 | W.PN.HOSP.TC ---
Today's Communication/Plan
-
see bold
Assessment / Plan
Assessment / Plan
62-year-old female past medical history of bipolar disorder, hypertension, hyperlipidemia, thyroid cancer status post thyroidectomy, chronic kidney disease presented for change in mental status.�Patient was hospitalized at [facility] after
Thanksgiving for charles and at that time was taken off of Vraylar and started on Zyprexa in early May.� Zyprexa has been successful in calming the charles but patient has been showing less emotion, having flattened affect particularly over the
past week.� She has been eating significantly less.
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
past 3 days she has been catatonic at times, staring at the wall for many hours and is less communicative.
She was incontinent of urine while staring at the wall.� She was complaining of some lower abdominal pain.�
No suicidal ideation. No history of absent seizures. No alcohol or any drugs.
Pt seen and examined with nurse Winston Ch present at bedside:
Gen: NAD, Awake and alert
Eyes: EOMI, PERRLA, no scleral icterus.
Neck: supple.
CV: RRR, +S1/S2, no m/r/g.
Resp: CTAB, no rales, wheezes, or rhonchi.
Abd: +BS, soft, NT, ND
Skin: No rashes.
Neuro: CN 2-12 intact, non-focal.
Psych: flat affect.
07/29/23 14:53 Urine Urine Culture - Final
Escherichia coli
Acute toxic metabolic encephalopathy:
-Multifactorial and secondary to UTI and well as psychiatric medication changes
-see below
Urinary tract infection:
-UCx with E coli
-completed 5 days Rocephin
Bipolar d/o:
-with h/o catatonic/staring episodes
-likely related to change in psychiatric medications
-Absence seizures unlikely
-psych following
-olanzapine and oxcarbazepine doses decreased
Other problems:
Hypernatremia and metabolic, anion gap, acidosis: resolved with D5W
JOHN on CKD3b: Cr improved with IVFs
Other problems:
Thyroid cancer s/p thyroidectomy: continue levothyroxine
Essential hypertension: cont ARB/BB
Hyperlipidemia: cont statin
FULL/heparin
Anticipated Discharge: Within 24 hours
Subjective/Interval History
-
Date of Service: August 03, 2023
Pt says that 'everything' is bothering her.
Objective Data
-
Labs:
Laboratory Results
08/03/23
07:53
WBC 8.0
Hgb 10.4 L
Hct 30.0 L
Plt Count 379
Sodium 135
Potassium 4.0
Chloride 107
Carbon Dioxide 20 L
BUN 31 H
Creatinine 1.8 H
Glucose 123 H
Calcium 8.9
Vital Signs:
Vital Signs
Temp Pulse Resp BP Pulse Ox
97.5 F 75 14 142/94 97
08/03/23 09:00 08/03/23 09:00 08/03/23 09:00 08/03/23 09:00 08/03/23 09:00
I&O
08/02/23 08/03/23 08/04/23
06:59 06:59 06:59
Intake Total 1759 / 1759 2760 / 276
Balance 176 / 1760 2760 / 2760
[2023-08-03] MEDS: TRILEPTAL 600 MG PO (09:58)
[2023-08-03] MEDS: VITAMIN D3 (cholecalciferol) 25 MCG PO (09:58)
[2023-08-03] MEDS: TOPROL XL 50 MG PO (09:58)
[2023-08-03] MEDS: COZAAR 50 MG PO (09:59)
[2023-08-03] MEDS: HEPARIN SC ×2 (10:04→21:22)
--- NOTE | 2023-08-03 11:01 | W.PN.UPDATE ---
Update Note
Progress Note Update
patient seen chart reviewed. discussed w nursing, aide cm and patient's . the patient had an episode of agitation this am and is now in soft restraints. she refused all of her medications this am. when i saw her she was calm but not very
conversant. she nodded in response to my explanations of why she needs to take medication and nodded to my entreaties to cooperative but it is unclear if she will cooperate. discussed the events w . i considered psych hosp but he wishes to
avoid it if possible. for now will inc zyprexa to 15 mg will come in bid to get her to take all of her meds and we will hold off on psych hospital for now. discussed w dr khalil who feels patient could be dc if psych stable. will reassess
tomorrow.
[2023-08-03] MEDS: ZYPREXA 15 MG PO (13:41)
[2023-08-03 15:20] VITALS: BP 121/75
--- NOTE | 2023-08-03 16:05 | CM ---
Spoke with spouse, patient sleeping and with soft restraints.
Per spouse patient has been inpatient psych in the 80s at [facility] and again recently in the [facility].
Patient has been followed by Dr Fran Ruiz for outpatient treatment.
Spouse currently does not want inpatient and would like to be able to take her home if she is stable.
Plan: TBD, CM will cont to follow.
[2023-08-03] MEDS: TRILEPTAL 300 MG PO (17:21)
[2023-08-03] MEDS: LIPITOR PO (21:22)
[2023-08-03 23:23] VITALS: BP 114/73
[2023-08-04] VITALS (7 sets, daily range): BP systolic 89–128; BP diastolic 57–81; PULSE 68; O2SAT 99–100
[2023-08-04] MEDS: SYNTHROID 137 MCG PO (05:49)
[2023-08-04 09:02] LABS: Blood Urea Nitrogen 32 mg/dl (7-17); Carbon Dioxide 25 mmol/L (22-30); Chloride 105 mmol/L (98-107); Estimated Creatinine Clearance 25 ml/min; Glucose 93 mg/dl (70-99); Potassium 4.4 mmol/L (3.5-5.1); Sodium 138 mmol/L (135-145)
[2023-08-04] MEDS: HEPARIN SC ×2 (09:37→20:56)
[2023-08-04] MEDS: TRILEPTAL 600 MG PO (09:43)
[2023-08-04] MEDS: TOPROL XL 50 MG PO (09:43)
[2023-08-04] MEDS: VITAMIN D3 (cholecalciferol) 25 MCG PO (09:44)
--- NOTE | 2023-08-04 10:22 | W.PN.HOSP.TC ---
Today's Communication/Plan
-
see bold, possible d/c today pending psych follow up today
Assessment / Plan
Assessment / Plan
62-year-old female past medical history of bipolar disorder, hypertension, hyperlipidemia, thyroid cancer status post thyroidectomy, chronic kidney disease presented for change in mental status.�Patient was hospitalized at [facility] after
Thanksgiving for charles and at that time was taken off of Vraylar and started on Zyprexa in early May.� Zyprexa has been successful in calming the charles but patient has been showing less emotion, having flattened affect particularly over the
past week.� She has been eating significantly less.
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
past 3 days she has been catatonic at times, staring at the wall for many hours and is less communicative.
She was incontinent of urine while staring at the wall.� She was complaining of some lower abdominal pain.�
No suicidal ideation. No history of absent seizures. No alcohol or any drugs.
Pt seen and examined with nurse Winston Ch present at bedside:
Gen: NAD, Awake and alert
Eyes: EOMI, PERRLA, no scleral icterus.
Neck: supple.
CV: remains RRR, +S1/S2, no m/r/g.
Resp: remains CTAB, no rales, wheezes, or rhonchi.
Abd: remains +BS, soft, NT, ND
Skin: No rashes.
Neuro: CN 2-12 intact, non-focal.
Psych: flat affect.
07/29/23 14:53 Urine Urine Culture - Final
Escherichia coli
Acute toxic metabolic encephalopathy:
-Multifactorial and secondary to UTI and well as psychiatric medication changes
-see below
Urinary tract infection:
-UCx with E coli
-completed 5 days Rocephin
Bipolar d/o:
-with h/o catatonic/staring episodes
-likely related to change in psychiatric medications
-Absence seizures unlikely
-olanzapine and oxcarbazepine doses decreased
-psych following. I have asked Dr. Antonio to update me after he sees the pt today.
Other problems:
Hypernatremia and metabolic, anion gap, acidosis: resolved with D5W
JOHN on CKD3b: Cr improved with IVFs
Other problems:
Thyroid cancer s/p thyroidectomy: continue levothyroxine
Essential hypertension: cont ARB/BB
Hyperlipidemia: cont statin
FULL/heparin
Anticipated Discharge: Within 24 hours
Subjective/Interval History
-
Date of Service: August 04, 2023
No new complaints. As per nursing patient has been compliant with medications.
Objective Data
-
Labs:
Laboratory Results
08/04/23
07:35
Sodium 138
Potassium 4.4
Chloride 105
Carbon Dioxide 25
BUN 32 H
Creatinine 1.9 H
Glucose 93
Calcium 9.0
Vital Signs:
Vital Signs
Temp Pulse Resp BP Pulse Ox
97.3 F 59 12 104/77 98
08/04/23 08:00 08/04/23 08:00 08/04/23 08:00 08/04/23 08:00 08/04/23 08:00
I&O
08/03/23 08/04/23 08/05/23
06:59 06:59 06:59
Intake Total 2760 / 2760 1350 / 1350
Balance 2760 / 2760 1350 / 1350
--- NOTE | 2023-08-04 12:00 | PTCARENOTE ---
0930am Noted Pt's BP at 8am 104/77. DR. Michaels here to see pt and aware to give toprol 50mg XL po, hold cozaar 50 mg po, continue to monitor pt.
11:45am Rechecked BP manually 90/58, noted pt is asymptomatic. DR. Michaels notified and noted orders as per .
[2023-08-04] MEDS: COZAAR PO (12:15)
[2023-08-04] MEDS: ZYPREXA 15 MG PO (15:03)
--- NOTE | 2023-08-04 15:30 | W.PN.UPDATE ---
Update Note
Progress Note Update
Pt seen, record reviewed. Pt resting in bed, with present. Pt calm, somewhat sleepy, with no signs of psychosis or mood disturbance, no agitation. Zyprexa increased back to 15 mg home dose, taking at 2 pm so that can be present to
encourage adherence. Pt noted to be sleepy after taking. concerned about whether pt's current psychotropic meds are optimal; pt has ongoing treatment with her outpatient psychiatrist by telehealth. No signs of EPS; pt denies feeling
restless.
Imp: Bipolar d/o by history, stable on current medications
Delirium due to UTI, resolving
Rec: Pt appears psychiatrically stable to return home, to continue follow-up with her outpatient psychiatrist. Further adjustment of medications can be done as an outpatient.
--- NOTE | 2023-08-04 17:41 | CM ---
Patient evaluated by PT/OT, recommendation is for skilled rehab.
Options provided to patient and spouse.
Patient with a history of inpatient psychiatric 05/22-06/21
May need a level 2 eval.
referrals sent.
CM will follow up in am.
Plan: skilled rehab when stable, bed available and auth obtained.
[2023-08-04] MEDS: TRILEPTAL 300 MG PO (18:31)
[2023-08-04] MEDS: LIPITOR 20 MG PO (20:56)
[2023-08-05 07:00] VITALS: BP 117/80
[2023-08-05 08:29] LABS: Blood Urea Nitrogen 39 mg/dl (7-17); Carbon Dioxide 23 mmol/L (22-30); Chloride 104 mmol/L (98-107); Estimated Creatinine Clearance 25 ml/min; Glucose 99 mg/dl (70-99); Potassium 4.6 mmol/L (3.5-5.1); Sodium 140 mmol/L (135-145)
--- NOTE | 2023-08-05 10:19 | W.PN.UPDATE ---
Update Note
Progress Note Update
Patient seen at bedside, chart reviewed, discussed with staff. Ms. Saez is awake, alert, and oriented this AM. She is soft spoken but cooperative. She tells me she is hoping to go home today. PT/OT have recommended skilled rehab. No agitation
overnight. No longer in restraints. Sleep has been good. She reports no real appetite this AM. Denies any SI/SB, AH/VH. Taking meds when is here. Cannot explain why she has refused them at times.
Impression/Plan:� History of Bipolar disorder - continue current regimen which includes Trileptal 600mg in AM & 300mg PM as well as Zyprexa 15mg. Patient follows Dr. Ruiz as an outpatient for psychotropic medications. It has been noted that the
does not feel her current medication regimen is adequate. This should be addressed with her OP provider as it would not be appropriate to make changes during an acute medical hospitalization with no overt signs of any psychosis or
manic/hypomanic symptoms.
Delirium due to UTI, now resolving.
[2023-08-05] MEDS: SYNTHROID 137 MCG PO (10:35)
[2023-08-05] MEDS: TOPROL XL 25 MG PO (10:38)
[2023-08-05] MEDS: TRILEPTAL 600 MG PO (10:39)
[2023-08-05] MEDS: VITAMIN D3 (cholecalciferol) 25 MCG PO (10:40)
[2023-08-05] MEDS: HEPARIN 5000 UNITS SC ×2 (10:40→19:55)
--- NOTE | 2023-08-05 11:27 | W.PN.HOSP.TC ---
Addendum entered and electronically signed by Venancio Michaels MD 08/05/23 15:29:
The patient will likely require less than 30 days for retirement facility services as her symptoms and behaviors are stable.
Original Note:
Today's Communication/Plan
-
d/c
Assessment / Plan
Assessment / Plan
62-year-old female past medical history of bipolar disorder, hypertension, hyperlipidemia, thyroid cancer status post thyroidectomy, chronic kidney disease presented for change in mental status.�Patient was hospitalized at [facility] after
Thanksgiving for charles and at that time was taken off of Vraylar and started on Zyprexa in early May.� Zyprexa has been successful in calming the charles but patient has been showing less emotion, having flattened affect particularly over the
past week.� She has been eating significantly less.
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
past 3 days she has been catatonic at times, staring at the wall for many hours and is less communicative.
She was incontinent of urine while staring at the wall.� She was complaining of some lower abdominal pain.�
No suicidal ideation. No history of absent seizures. No alcohol or any drugs.
Pt seen and examined with nurse Winston Ch present at bedside:
Gen: NAD, Awake and alert
Eyes: EOMI, PERRLA, no scleral icterus.
Neck: supple.
CV: continues to remain RRR, +S1/S2, no m/r/g.
Resp: continues to remain CTAB, no rales, wheezes, or rhonchi.
Abd: continues to remain +BS, soft, NT, ND
Skin: No rashes.
Neuro: CN 2-12 intact, non-focal.
Psych: flat affect.
07/29/23 14:53 Urine Urine Culture - Final
Escherichia coli
Acute toxic metabolic encephalopathy:
-Multifactorial and secondary to UTI and well as psychiatric medication changes
-see below
Urinary tract infection:
-UCx with E coli
-completed 5 days Rocephin
Bipolar d/o:
-with h/o catatonic/staring episodes
-likely related to change in psychiatric medications
-Absence seizures unlikely
-olanzapine and oxcarbazepine doses decreased
-psych saw on consult and is cleared the patient for discharge as of 08/04/23
Other problems:
Hypernatremia and metabolic, anion gap, acidosis: resolved with D5W
JOHN on CKD3b: Cr improved with IVFs
Other problems:
Thyroid cancer s/p thyroidectomy: continue levothyroxine
Essential hypertension: cont ARB/BB
Hyperlipidemia: cont statin
FULL/heparin
Remains medically stable for discharge, case management aware.
Anticipated Discharge: Today
Subjective/Interval History
-
Date of Service: August 05, 2023
No new complaints.
Objective Data
-
Labs:
Laboratory Results
08/05/23
07:18
Sodium 140
Potassium 4.6
Chloride 104
Carbon Dioxide 23
BUN 39 H
Creatinine 1.9 H
Glucose 99
Calcium 9.0
Vital Signs:
Vital Signs
Temp Pulse Resp BP Pulse Ox
97.9 F 64 16 117/80 100
08/05/23 07:00 08/05/23 07:00 08/05/23 07:00 08/05/23 07:00 08/05/23 07:00
I&O
08/04/23 08/05/23 08/06/23
06:59 06:59 06:59
Intake Total 1350 / 1350 1620 / 1620
Balance 1350 / 1350 1620 / 1620
[2023-08-05] MEDS: ZYPREXA 15 MG PO (14:47)
[2023-08-05 15:04] VITALS: BP 156/104
[2023-08-05 15:08] VITALS: BP 139/105; PULSE 107
[2023-08-05 15:17] VITALS: BP 147/104
--- NOTE | 2023-08-05 16:05 | CM ---
CM reviewed pt with Dr Michaels- pt medically ready for dc
Pt denied at and [facility] considering and pt accepted at [facility]
Discussion with spouse over- he is requesting [facility] due to location
Bed available at [facility] tomorrow
[facility] auth obtained for SNF and BLS
30 day exception note received from Dr Michaels and sent to [facility] via [facility]
Spouse requesting all coordination of dc planning through him and updates tomorrow
[facility] SNF [id number] 08/06-08/11 NRD p [phone] option 5
[facility] [id number] good for 1 unit, valid for 7 days
Ant/IBC [phone]
Discharge Disposition- [facility] tomorrow via BLS
[2023-08-05] MEDS: TRILEPTAL 300 MG PO (18:15)
[2023-08-05] MEDS: LIPITOR 20 MG PO (21:25)
[2023-08-05 23:35] VITALS: BP 130/88
[2023-08-06] MEDS: SYNTHROID 137 MCG PO (06:06)
[2023-08-06 08:06] VITALS: BP 134/86
[2023-08-06 08:11] LABS: Blood Urea Nitrogen 32 mg/dl (7-17); Calcium 9.1 mg/dl (8.4-10.2); Carbon Dioxide 26 mmol/L (22-30); Chloride 110 mmol/L (98-107); Estimated Creatinine Clearance 25 ml/min; Glucose 115 mg/dl (70-99); Potassium 4.1 mmol/L (3.5-5.1); Sodium 140 mmol/L (135-145)
--- NOTE | 2023-08-06 08:31 | W.PN.HOSP.TC ---
Addendum entered and electronically signed by Venancio Michaels MD 08/06/23 10:10:
Total time spent on d/c = 31 min. This included today's physical exam, progress note, review of laboratory and diagnostic data, preparation of discharge documents and prescriptions, and discussions about the pt's hospital course and discharge plan
with the patient and other medical laboratory technician involved in the patient's care.
Original Note:
Today's Communication/Plan
-
d/c
Assessment / Plan
Assessment / Plan
62-year-old female past medical history of bipolar disorder, hypertension, hyperlipidemia, thyroid cancer status post thyroidectomy, chronic kidney disease presented for change in mental status.�Patient was hospitalized at [facility] after
Thanks for charles and at that time was taken off of Vraylar and started on Zyprexa in early May.� Zyprexa has been successful in calming the charles but patient has been showing less emotion, having flattened affect particularly over the
past week.� She has been eating significantly less.
5 days [employer], she had a teleconference with her psychiatrist and he checked outpatient labs to evaluate for medical causes.� Labs show that she had increase of creatinine up to 2.5 and was told to bring patient in to the hospital.� Over the
past 3 days she has been catatonic at times, staring at the wall for many hours and is less communicative.
She was incontinent of urine while staring at the wall.� She was complaining of some lower abdominal pain.�
No suicidal ideation. No history of absent seizures. No alcohol or any drugs.
Gen: NAD, Awake and alert
Eyes: EOMI, PERRLA, no scleral icterus.
Neck: supple.
CV: RRR, +S1/S2, no m/r/g.
Resp: CTAB, no rales, wheezes, or rhonchi.
Abd: +BS, soft, NT, ND
Skin: No rashes.
Neuro: CN 2-12 intact, non-focal.
Psych: flat affect.
07/29/23 14:53 Urine Urine Culture - Final
Escherichia coli
Acute toxic metabolic encephalopathy:
-Multifactorial and secondary to UTI and well as psychiatric medication changes
-see below
Urinary tract infection:
-UCx with E coli
-completed 5 days Rocephin
Bipolar d/o:
-with h/o catatonic/staring episodes
-likely related to change in psychiatric medications
-Absence seizures unlikely
-olanzapine and oxcarbazepine doses decreased
-psych saw on consult and is cleared the patient for discharge as of 08/04/23
Other problems:
Hypernatremia and metabolic, anion gap, acidosis: resolved with D5W
JOHN on CKD3b: Cr improved with IVFs
Other problems:
Thyroid cancer s/p thyroidectomy: continue levothyroxine
Essential hypertension: cont ARB/BB
Hyperlipidemia: cont statin
FULL/heparin
Continues to remains medically stable for discharge, case management aware.
Anticipated Discharge: Today
Subjective/Interval History
-
Date of Service: August 06, 2023
No new complaints.
Objective Data
-
Labs:
Laboratory Results
08/06/23
07:30
Sodium 140
Potassium 4.1
Chloride 110 H
Carbon Dioxide 26
BUN 32 H
Creatinine 1.9 H
Glucose 115 H
Calcium 9.1
Vital Signs:
Vital Signs
Temp Pulse Resp BP Pulse Ox
97.6 F 77 16 134/86 99
08/06/23 08:06 08/06/23 08:06 08/06/23 08:06 08/06/23 08:06 08/06/23 08:06
I&O
08/05/23 08/06/23 08/07/23
06:59 06:59 06:59
Intake Total 1620 / 1620 800 / 800 120 / 120
Balance 1620 / 1620 800 / 800 120 / 120
[2023-08-06] MEDS: HEPARIN 5000 UNITS SC (09:10)
[2023-08-06] MEDS: TRILEPTAL 600 MG PO (09:11)
[2023-08-06] MEDS: TOPROL XL 25 MG PO (09:11)
[2023-08-06] MEDS: VITAMIN D3 (cholecalciferol) 25 MCG PO (09:11)
--- NOTE | 2023-08-06 10:16 | CM ---
Patient cleared for d/c.
Insurance auth provided to Paola at [facility].
Patient will require ambulance transport, auth obtained.
[facility]
report# [phone]
--- NOTE | 2023-08-06 11:55 | W.DCSUMMARY ---
Discharge Summary
Discharge Data
Date of Admission: 07/29/23
Date of Discharge: 08/06/23
-
Pending Results: No
Hospital Course
Primary diagnoses:
Acute toxic metabolic encephalopathy, multifactorial and secondary to possible, uncomplicated, urinary tract infection and well as psychiatric medication changes
Bipolar disorder
Acute kidney injury on chronic kidney disease stage IIIb
Hypernatremia
Acute metabolic, anion gap, acidosis
Secondary diagnoses:
Thyroid cancer s/p thyroidectomy
Essential hypertension
Hyperlipidemia
Consultants:
Psychiatry
Imaging:
CT brain: No acute intracranial abnormality.
62-year-old female who presented with a chief complaint of altered mental status as outlined in the H&P done on admission. Hospital course by problem list:
Acute toxic metabolic encephalopathy: This was multifactorial and secondary to possible urinary tract infection and well as psychiatric medication changes. See individual problems below
Possible, uncomplicated, urinary tract infection: Patient's urinalysis on admission showed 2+ leuk esterase, positive nitrates, 11-15 white blood cells. She did report some lower abdominal pain on admission. The patient was placed on Rocephin.
Urine culture grew E. coli and she completed antibiotic therapy with 4 days of Rocephin (on day 2 the patient refused Rocephin). The last dose of Rocephin was August 02, 2023 and she did receive more than 3 days of antibiotic therapy which is
standard of care for treatment of uncomplicated UTI in a female. While hospitalized the patient had no leukocytosis or fever. In retrospect I suspect that her metabolic encephalopathy was due to her psychiatric medication changes and, at this
time, I am less convinced that she ever had a urinary tract infection. More likely she had asymptomatic bacteriuria.
Bipolar d/o: The patient had catatonic/staring episodes which were likely related to changes in psychiatric medications in the weeks/months prior to admission. Absence seizures were deemed unlikely. The patient's olanzapine and oxcarbazepine doses
were decreased. She was followed by psychiatry who cleared the patient for discharge as of 08/04/23. Her altered mental status/acute toxic metabolic encephalopathy improved while hospitalized.
Discharge Plan
-
Patient Disposition: Home (Routine Discharge)
Discharge Diagnosis/Procedures: Acute toxic metabolic encephalopathy, multifactorial and secondary to urinary tract infection and well as psychiatric medication changes, bipolar disorder, acute kidney injury on chronic kidney disease stage IIIb
Condition: Good
Diet: Regular
Activity: As tolerated
Driving Restrictions: Not until seen by your Dr
Blood Work: BMP and CBC in 1 week, script from PCP
Referrals:
Deanna Mcgrath DO [Family Provider] - in less than 1 week
Prescriptions:
New
oxcarbazepine 300 mg Tablet
300 mg PO DAILY@1800 Qty: 30 0RF
oxcarbazepine 300 mg Tablet
600 mg PO DAILY@0900 Qty: 60 0RF
olanzapine 15 mg tablet
15 mg PO DAILY@1400 Qty: 30 0RF
metoprolol succinate 25 mg Tablet Extended Release 24 Hr
25 mg PO DAILY Qty: 0 0RF
Continued
cholecalciferol (vitamin D3) [Vitamin D3] 25 mcg (1,000 unit) Capsule
25 mcg PO DAILY
levothyroxine 137 mcg Tablet
137 mcg PO DAILY
simvastatin 40 mg Tablet
40 mg PO HS
acetaminophen 650 mg Tablet Extended Release
1,300 mg PO DAILYPRN PRN (Reason: mild pain)
omega 4-hba-fna-fish oil [Fish Oil] 1,000 mg (120 mg-180 mg) Capsule
1 cap PO BID
Patient Comments:
07/29/2023, 2400 mg Fish Oil - 720 mg [place]-3.
Discontinued
losartan 50 mg Tablet
50 mg PO DAILY
metoprolol succinate 50 mg Tablet Extended Release 24 Hr
50 mg PO DAILY
oxcarbazepine 300 mg Tablet
600 mg PO BID
olanzapine 15 mg Tablet
15 mg PO DAILY@1999
Discharge Orders:
Discharge Patient (As Directed); Ordered 08/06/23
Ordered By: Venancio Michaels
[2023-08-06] MEDS: ZYPREXA 15 MG PO (13:58)
== END 2023-08-06 14:33 | DRG 689 ==
LOC: 4 WEST ACU 18:58
PROVIDERS: Internal Medicine; Physician Assistant; ADMITTING PHYSICIAN Hospitalist; ATTENDING PHYSICIAN Internal Medicine; EMERGENCY PHYSICIAN Emergency Medicine; FAMILY PHYSICIAN Student in an Organized Health Care Education/Training Program; OTHER PHYSICIAN Psychiatry & Neurology Psychiatry
DX: N39.0 Urinary tract infection, site not specified (principal); G92.8 Other toxic encephalopathy; F05 Delirium due to known physiological condition; E87.20 Acidosis, unspecified; N17.9 Acute kidney failure, unspecified; E87.0 Hyperosmolality and hypernatremia; I12.9 Hypertensive chronic kidney disease with stage 1 through stage 4 chronic kidney disease, or unspecified chronic kidney disease; N18.32 Chronic kidney disease, stage 3b; Z85.850 Personal history of malignant neoplasm of thyroid; F31.9 Bipolar disorder, unspecified; B96.20 Unspecified Escherichia coli [E. coli] as the cause of diseases classified elsewhere; E78.5 Hyperlipidemia, unspecified; E03.9 Hypothyroidism, unspecified
CPT/HCPCS: 51701; 70450; 80048; 80053; 81003; 81015; 84439; 84443; 85025; 85027; 87077; 87086; 87186; 93005; 96361; 96374; 97163; 97167; 97530; 97535; 99285; J2358